=== PATIENT | male | born 1970 | race Caucasian/White ===

== ENCOUNTER 2020-06-15 05:57 | Inpatient (IN) | payer OTHER, SELFPAY ==
[2020-06-10 11:05] LABS: Absolute Lymphocytes (CBC) 1.3 K/uL (0.7-4.9); Basophils % 0.6 % (0-1.3); Hematocrit 44.4 % (39.6-49.0); Lymphocytes % 12.2 % (15.3-44.8); MPV 9.4 fL (7.6-11.3); RBC Red Blood Cell Count 5.24 M/uL (4.33-5.43)
[2020-06-10 11:08] LABS: Protime INR 1.02
[2020-06-10 11:17] LABS: BUN Blood Urea Nitrogen 14 mg/dL (7-18); Bicarbonate 26 mmol/L (21-32); Glucose Level 105 mg/dL (74-106); Potassium 3.9 mmol/L (3.5-5.1); Sodium Level 141 mmol/L (136-145)
--- NOTE | 2020-06-10 11:47 | RAD REPORT ---
EXAM DESCRIPTION: Sri Greene (2 Views)06/10/2020 11:32 am CLINICAL HISTORY: Preop for knee surgery COMPARISON: None FINDINGS: The lungs appear clear of acute infiltrate. The heart is normal size IMPRESSION: No acute abnormalities displayed
[2020-06-15] MEDS ORDERED: Ringers Lactate 1,000 ML IV ONE ×3 (06:25→12:21)
[2020-06-15] MEDS ORDERED: CEFAZOLIN/SWI 2gm 2 GM/20 ML SYR ONE (06:26)
--- OUTSIDE RECORDS SUMMARY | 2020-06-15 06:34 | XMS REPORT | Continuity of Care Document ---
:1970 Author Organization [facility] t Address Counts include 234 beds at the [facility] [place] [address] Care Team Providers Name Role Phone Unavailable Unavailable Unavailable Problems Condition Condition Condition Status Onset Resolution Last Treating Co mments Source Name Details Category Date Date Treatment Clinician Date Pain, Pain, Problem Active [facility], knee, [facility] right right l Outpati ent Clinics Pain, Pain, Problem Active [facility], [facility], [facility] - knee, left knee, left Me moria l Outpati ent Clinics Primary Primary Problem Active [facility] osteoarthr osteoarthr [place] - itis of itis of Mem[facility] left knee left knee l Outpati ent Clinics Primary Primary Problem Active [facility] osteoarthr osteoarthr [place] - itis of itis of [facility] right knee right knee l Outpati ent Clinics Anxiety Anxiety Problem Active [facility] and and [facility] - depression depression Me moria l Outpati ent Clinics Spinal Spinal Problem Active [facility] stenosis, stenosis, Luke s - lumbar lumbar Memoria region region l without without Outpati neurogenic neurogenic en t claudicati claudicati Cl inics on on BPH BPH Diagnosis Active [facility] (benign (benign [facility] - prostatic prostatic Michael jeff hypertroph hypertroph l y) with y) with Outpati urinary urinary ent obstructio obstructio Cl inics n n Seasonal Seasonal Diagnosis Active [facility] allergies allergies [facility] - [facility] l Outpati ent Clinics Hyperlipid Hyperlipid Problem Active [facility] emia emia [facility] ent Clinics Essential Essential Diagnosis Active [facility] hypertensi hypertensi [place] - on on Mem[facility] l Outpati ent Clinics Elevated Elevated Diagnosis Active [facility] PSA PSA [facility] - [facility]oria l Outpati ent Clinics High-funct High-funct Diagnosis Active [facility] ioning ioning Lukes - autism autism Memoria spectrum spectrum l disorder disorder Outpat i ent Clinics Prediabete Prediabete Diagnosis Active [facility] - [facility] Allergies, Adverse Reactions, Alerts This patient has no known allergies or adverse reactions. Medications Ordered Filled Start Stop Current Ordering Indication Dosage Frequency Signature Comments Components Source Medication Medication Date Date Medication? Clinician (SIG) Name Name Vitamin D3 Vitamin D3 Yes Tra [address] [facility] Maximum Maximum 2-21 Richardson [facility] - Strength Strength 00:00: Memor ia 00 [facility] Vitamin C Vitamin C Yes Tra [address] [facility] Richardson [facility] - [facility]oria [facility] Naproxen Naproxen Yes Tra [address] [facility] Richardson [facility] - [facility]oria [facility] ent [facility] Multi Multi Yes Tra not [facility] Vitamin Vitamin Richardson defined [facility] Cetirizine Cetirizine Yes Tra [address] [facility] HCl HCl Richardson [facility] Finasteride Finasteride Yes Tra [address] [facility] - [facility] Sertraline Sertraline Yes Tra TAKE [address] [facility] HCl HCl Richardson TABLET BY Lukes - MOUTH ONCE Memoria A DAY [facility] Guanfacine Guanfacine Yes Tra TAKE [address] [facility] HCl HCl Richardson [facility] ent [facility] Procedures This patient has no known procedures. Encounters Start End Encounter Admission Attending Care Care Encounter Source Date/Time Date/Time Type Type Clinicians Facility Department ID 2019-10-20 2019-10-20 Outpatient Ivy Haynest [id number] [facility] 13:30:00 13:30:00 t [employer] [facility] Medicine [facility] ent [facility] 2019-10-02 2019-10-02 [facility] [id number] [address] 09:20:00 09:20:00 t [facility] - and Joint Joint Mem[facility] a [facility] ent [facility] 2019-08-13 2019-08-13 [facility] [id number] [address] 10:00:00 10:00:00 t Bone Bone and [facility] - and Joint Joint Memori a Clinic [facility] ent Clinics 2019-07-30 2019-07-30 Outpatient Ivy Collins [id number] [address] 14:00:00 14:00:00 t Curtis Fajardo Curtis [facility] ent Clinics 2019-06-16 2019-06-16 Outpatient Ivy Collins [id number] [address] 09:00:00 09:00:00 t Bone Bone and [facility] - and Joint Joint [facility] of [facility] ent Clinics Results This patient has no known results.
[2020-06-15] MEDS ORDERED: BUPIVACAINE 0.25% PF 10 ML VIAL ONE ×2 (06:39→08:06)
[2020-06-15] MEDS ORDERED: LIDOCAINE 2% MPF 5 ML VIAL ONE ×3 (06:39→08:06)
[2020-06-15] MEDS ORDERED: NS 0.9% VIAL 10 ML ONE ×2 (06:39→08:06)
[2020-06-15] MEDS ORDERED: dexAMETHasone 4 MG/ML VIAL ONE ×2 (06:39→08:06)
[2020-06-15] MEDS ORDERED: MIDAZOLAM HCL 2 MG/2 ML INJ ONE ×2 (06:40→08:06)
[2020-06-15] MEDS ORDERED: FENTANYL CITR 100 MCG/2 ML ONE ×2 (06:40→08:06)
--- OUTSIDE RECORDS SUMMARY | 2020-06-15 07:04 | XMS REPORT | Continuity of Care Document ---
:1970 Author Organization [facility] t Address [facility] [place] [address] Care Team Providers Name Role Phone Unavailable [...] [facility] Allergies, Adverse Reactions, Alerts This patient has no known allergies or adverse reactions. Medications Ordered Filled Start Stop Current Ordering Indication Dosage Frequency Signature Comments Components Source Medication Medication Date Date Medication? Clinician (SIG) Name Name Vitamin D3 Vitamin D3 Yes Tra [address] [facility] Maximum Maximum 2-21 Richardson [facility] - Strength Strength 00:00: Memor ia 00 [facility] Vitamin C Vitamin C Yes Tra [address] [facility] Naproxen Naproxen Yes Tra [address] [facility] - Memoria [facility] ent [facility] Multi Multi Yes Tra not [facility] Vitamin Vitamin Richardson defined [facility] Cetirizine Cetirizine Yes Tra [address] [facility] [address] HCl HCl Richardson [facility] Finasteride Finasteride Yes Tra [address] [facility] Sertraline Sertraline Yes Tra TAKE [address] [facility] [address] HCl HCl Richardson TABLET BY Lukes - MOUTH ONCE Memoria A DAY [facility] Guanfacine Guanfacine Yes Tra TAKE [address] [facility] HCl HCl Richardson [facility] Procedures This patient has no known procedures. Encounters Start End Encounter Admission Attending Care Care Encounter Source Date/Time Date/Time Type Type Clinicians Facility Department ID 2019-10-20 2019-10-20 Outpatient Ivy Haynest [id number] [facility] [address] 13:30:00 13:30:00 t [place] [facility] Medicine [facility] ent [facility] 2019-10-02 2019-10-02 [facility] [id number] [address] 09:20:00 09:20:00 t Bone Bone and [facility] - and Joint Joint Memori a [facility] ent [facility] 2019-08-13 2019-08-13 [facility] [id number] 10:00:00 10:00:00 t Bone Bone and [facility] - and Joint Joint Memori a Clinic [facility] ent Clinics 2019-07-30 2019-07-30 Outpatient Ivy Collins [id number] 14:00:00 14:00:00 t Curtis Fajardo Curtis [facility] ent Clinics 2019-06-16 2019-06-16 Outpatient Ivy Collins [id number] 09:00:00 09:00:00 t Bone Bone and [facility] - and Joint Joint [facility] Clinic of [facility] ent Clinics Results This patient has no known results.
[2020-06-15] MEDS ORDERED: HYDROMORPHONE HCL 1 MG/ML INJ ONE (07:37)
[2020-06-15] MEDS ORDERED: propofoL 200 MG/20 ML VIAL IV ONE (07:42)
[2020-06-15] MEDS ORDERED: KETAMINE HCL 500 MG/5 ML VIAL ONE (07:51)
[2020-06-15] MEDS ORDERED: TRANEXAMIC ACID 1,000 MG in NA CHLORIDE 0.9% 50 ML IV SCH (08:00)
[2020-06-15] MEDS ORDERED: EPHEDRINE SULF 50 MG/ML VIAL ONE (08:01)
[2020-06-15] MEDS: BUPIVACA 0.5%/EPI 0.0005%/PF 30 ML VIAL ONE ×2 (08:35→10:00)
[2020-06-15] MEDS ORDERED: KETOROLAC 30 MG/ML INJ ONE ×2 (10:28→12:21)
[2020-06-15] MEDS ORDERED: MORPHINE 10 MG/ML VIAL ONE (10:41)
--- NOTE | 2020-06-15 11:07 | P.BOP ---
Preoperative diagnosis: right knee osteoarthritis Postoperative diagnosis: same Primary procedure: right total knee arthroplasty Secondary procedure: same Convex Grinder Operator: NONE,NONE Estimated blood loss: 20 cc Specimen: right knee bone remnants Findings: see dictation Anesthesia: General Complications: None Implants: Biomet Geraldine Persona 10 CR Std Femur, G tibia, 32 patella, 13mm MC poly Fluids & blood products: per anesthesia record; TT: 122 mins @ 300 mmHg Transferred to: Recovery Room Condition: Good
[2020-06-15] MEDS ORDERED: MORPHINE 2 MG/ML SYR IV PRN (11:08)
[2020-06-15] MEDS ORDERED: DOCUSATE NA 100 MG CAP PO PRN (11:08)
[2020-06-15] MEDS ORDERED: ONDANSETRON 4 MG/2 ML VIAL IV PRN (11:08)
[2020-06-15] MEDS ORDERED: TRAMADOL HCL 50 MG TAB PO PRN (11:13)
[2020-06-15] MEDS: HYDROMORPHONE HCL 1 MG/ML INJ ONE ×4 (11:43→12:17)
--- NOTE | 2020-06-15 12:36 | RAD REPORT ---
EXAM DESCRIPTION: RAD - Knee Right 2 View - 06/15/2020 11:50 am CLINICAL HISTORY: Right knee surgery FINDINGS: Postoperative changes of a right knee arthroplasty. Prosthesis is in good position. No evidence of fracture or dislocation
[2020-06-15 12:54] LABS: Hematocrit 44.4 % (39.6-49.0)
[2020-06-15] MEDS ORDERED: INFLUENZA VACCINE (for 3y+) 0.5 ML DOSE IMVAC ONE (15:00)
[2020-06-15 16:10] LABS: Absolute Lymphocytes (CBC) 0.4 K/uL (0.7-4.9); Basophils % 0.4 % (0-1.3); Hematocrit 46.1 % (39.6-49.0); Lymphocytes % 1.9 % (15.3-44.8); MPV 9.3 fL (7.6-11.3); RBC Red Blood Cell Count 5.36 M/uL (4.33-5.43)
[2020-06-15 16:33] LABS: Albumin 3.7 g/dL (3.4-5.0); Bilirubin Total 0.4 mg/dL (0.2-1.0); Potassium 4.1 mmol/L (3.5-5.1); Protein, Total 7.2 g/dL (6.4-8.2); Thyroid Stimulating Hormone 0.513 uIU/mL (0.360-3.740)
[2020-06-15 16:50] LABS: Blood Morphology Comment NOT SEEN (NOT SEEN); Platelet Estimate ADEQ; Toxic Granulation 1+; White Blood Cell Scan OK (OK)
[2020-06-15] MEDS ORDERED: CEFAZOLIN/SWI 2gm 2 GM/20 ML SYR IV SCH (17:00)
[2020-06-15] MEDS ORDERED: CEFAZOLIN 2 GM in NA CHLORIDE 0.9% 100 ML IVPB SCH (17:00)
[2020-06-15] MEDS ORDERED: METOPROLOL TARTRATE 5 MG/5 ML INJ IV STA (17:38)
[2020-06-15] MEDS ORDERED: PIPER/TAZO/NS 3.375gm 3.375 GM/100 ML BAG IVPB SCH (18:00)
[2020-06-15] MEDS: HYDROCODONE/APAP 7.5/325 MG TAB PO PRN (21:01)
[2020-06-15 23:24] VITALS: O2SAT 94
[2020-06-16] MEDS ORDERED: CEFAZOLIN 2 GM in NA CHLORIDE 0.9% 100 ML IVPB SCH (01:00)
[2020-06-16] MEDS: CEFAZOLIN/SWI 2gm 2 GM/20 ML SYR IV SCH ×2 (01:00→11:29)
[2020-06-16] MEDS: HYDROCODONE/APAP 7.5/325 MG TAB PO PRN ×3 (01:01→11:33)
[2020-06-16 04:29] LABS: Absolute Lymphocytes (CBC) 0.7 K/uL (0.7-4.9); Basophils % 0.1 % (0-1.3); Hematocrit 39.5 % (39.6-49.0); Lymphocytes % 3.9 % (15.3-44.8); MPV 9.4 fL (7.6-11.3); RBC Red Blood Cell Count 4.66 M/uL (4.33-5.43)
[2020-06-16 04:36] LABS: BUN Blood Urea Nitrogen 10 mg/dL (7-18); Bicarbonate 25 mmol/L (21-32); Glucose Level 142 mg/dL (74-106); Potassium 3.7 mmol/L (3.5-5.1); Sodium Level 141 mmol/L (136-145)
[2020-06-16] MEDS ORDERED: ENOXAPARIN 30 MG/0.3 ML SQ SCH (06:00)
[2020-06-16] MEDS ORDERED: SERTRALINE HCL 100 MG TAB PO SCH (09:00)
[2020-06-16] MEDS ORDERED: CELECOXIB 100 MG CAPSULE PO SCH (09:00)
[2020-06-16] MEDS ORDERED: GUANFACINE HCL 1 MG TAB PO SCH (09:00)
[2020-06-16] MEDS ORDERED: FINASTERIDE 5 MG TAB PO SCH (09:00)
[2020-06-16 09:21] VITALS: TEMP 97.7
--- NOTE | 2020-06-16 09:48 | P.CNS ---
Date of Consult: 06/15/20 Reason for Consult: Tachyarrhythmia postoperatively Requesting Physician: Wayne Walters Chief Complaint: Presents for total right knee arthroplasty History of Present Illness: Patient is a 49-year-old gentleman who came into the hospital for right total knee arthroplasty. Patient is has severe arthritis in that right knee. They been monitoring it for quite a while but he got to the point were he was having difficulty ambulating. Patient is morbidly obese and weighs over 300 lb. Patient did well during surgery. However, postoperatively his heart rate was slightly elevated. I was consulted for assistance with evaluating his elevated heart rate. Patient was seen by Cardiology in the preoperative. Patient had any EKG performed which was unremarkable. His EKG today does show some sinus tachycardia. His heart rates is 110 to 120s. At this time, patient will be monitored and will do additional cardiac testing including thyroid testing. Patient does have sinus tachycardia and will evaluate him for etiologies of si nus tachycardia. Allergies No Known Allergies Allergy (Verified 06/10/20 11:07) Home Medications: Ascorbic Acid [Vitamin C] 1,000 mg PO DAILY 06/10/20 Cholecalciferol (Vitamin D3) [Vitamin D 5,000 Iu Cap] 5,000 unit PO DAILY 06/10/20 Finasteride 5 mg PO DAILY 06/10/20 Guanfacine HCl 2 mg PO DAILY 06/10/20 Ibuprofen 2 tab PO PRN PRN 06/10/20 Multivitamin [Multivitamins] 1 each PO DAILY 06/10/20 Sertraline [Zoloft] 100 mg PO DAILY 06/10/20 - Past Medical/Surgical History -: Hypertension -: hyperlipidemia -: Anxiety -: Depression -: Spinal Stenosis,lumbar region -: elevated PSA - Family History Father Family History: Reviewed- Non-Contributory - Social History Alcohol use: No CD- Drugs: No Caffeine use: Yes Place of Residence: Home Review of Systems 10-point ROS is otherwise unremarkable Physical Examination Temp Pulse Resp BP Pulse Ox 97.7 F 87 18 120/64 94 06/16/20 08:00 06/16/20 08:00 06/16/20 08:26 06/16/20 08:00 06/16/20 08:26 General: Alert, In no apparent distress, Oriented x3 HEENT: Atraumatic, PERRLA, Mucous membr. moist/pink, EOMI, Sclerae nonicteric Neck: Supple, 2+ carotid pulse no bruit, No LAD, Without JVD or thyroid abnormality Respiratory: Clear to auscultation bilaterally, Normal air movement Cardiovascular: Other (Tachyarrhythmia) Gastrointestinal: Normal bowel sounds, Soft and benign, Non-distended, No tenderness Musculoskeletal: No clubbing, No swelling, No tenderness Integumentary: No rashes Neurological: Normal speech, Normal strength at 5/5 x4 extr, Normal tone, Sensation intact, Cranial nerves 3-12 intact, Normal affect, Abnormal gait, Abnormal strength Lymphatics: No axilla or inguinal lymphadenopathy Laboratory Data (last 24 hrs) 06/16/20 03:43: Sodium 141, Potassium 3.7, BUN 10, Creatinine 0.69, Glucose 142 H 06/16/20 03:43: WBC 18.0 H, Hgb 13.8, Hct 39.5 L, Plt Count 203 D 06/15/20 15:55: WBC 20.2 H* D, Hgb 15.6, Hct 46.1, Plt Count 269 D 06/15/20 15:55: Sodium 142, Potassium 4.1, BUN 12, Creatinine 0.93, Glucose 167 H, Total Bilirubin 0.4, AST 15, ALT 23, Alkaline Phosphatase 81 06/15/20 12:12: Hgb 14.8, Hct 44.4 - Problems (1) Status post total right knee replacement Current Visit: Yes Status: Acute (2) Sinus tachycardia Current Visit: Yes Status: Acute Conclusions/ Impression: Plan: 1. Pain control 2. IV hydration 3. Continue with physical therapy 4. EKG repeated and it shows sinus tachycardia 5. Check echocardiogram 6. Check thyroid studies 7. Check H&H 8. O2 sats are stable and will continue to monitor 9. GI and DVT prophylaxis Critical Care: No Time Spent Managing Pts care (In Minutes): 45
--- NOTE | 2020-06-16 12:31 | OP ---
Date of Procedure: 06/15/2020 Surgeon: Wayne Walters MD Preoperative Diagnosis: Right knee osteoarthritis. Postoperative Diagnosis: Right knee osteoarthritis. Procedure Performed: Right total knee arthroplasty. Anesthesia: General LMA with right adductor canal block. Estimated Blood Loss: 20 cc. Fluids: Per Anesthesia record. Complications: None. Tourniquet Time: 122 minutes at 300 mmHg. Implants: A Biomet Geraldine Persona knee, size 10 CR standard femur, size G tibia, size 32 patella, and a 13 mm MC poly. Indication For Procedure: Nate is a 49-year-old male presented to my clinic with signs, symptoms and x-ray findings consistent with a severe right knee osteoarthritis with varus deformity. I discussed with the patient at length risks and benefits associated with operative and nonoperative treatment. He had failed conservative treatment measures including corticosteroid and viscosupplementation injections. He expressed understanding and elected to proceed with operative treatment. Description Of Procedure: After informed consent was obtained, the patient was identified in the preoperative holding area. The right lower extremity was marked. The patient was then taken to the PACU where he underwent a right lower extremity adductor canal block performed by Anesthesia. He was then taken to the operating room, transferred to the operating table in supine fashion, and placed under general anesthesia. His right lower extremity was then prepped and draped in usual sterile fashion. A time-out was initiated. The correct patient and procedure were confirmed and identified. The patient did receive his preoperative prophylactic antibiotics. The right lower extremity was then exsanguinated and tourniquet was inflated to 300 mmHg. Approximately 15 cm longitudinal incision was made centered over the anterior aspect of the right knee. Dissection was then taken to the extensor mechanism and a medial parapatellar arthrotomy was performed. The patella was everted and dislocated laterally and the knee was flexed in the fat pad. Medial lateral meniscus and ACL were all excised exposing the distal femur. Excess hypertrophic synovium was also excised within the suprapatellar pouch preoperatively. The patient had MRIs of his right knee and cutting block was then placed over the distal femur and pins were then placed. The distal femoral cutting block was then placed over the pins. Knee joint was then used to ensure proper depth cut and the distal femur was then cut. The chamfer cutting guide was then placed over the distal end of the femur. Anterior, posterior cuts as well as anterior and posterior chamfer cuts were then made again confirming proper depth of the cut using an Carlos wing. Excess bone remnants were then sent to Pathology for further evaluation. Next, attention was taken to the proximal tibia. A tibial jig and tibial cutting block was then placed on proximal aspect of the right tibia and locked into position. Pins were then placed and alignment guide was then used to confirm proper alignment of the cut and then coronal and sagittal planes. Once this was confirmed, the cutting jig was placed over the pins and the proximal tibia was cut. Given a significant wearing deformity of his right knee, extra tibia was cut to get the medial tibial plateau and to have a slight cut on the medial tibial plateau. Sizing trays were then selected and size 12 mm spacer was used and there was good overall balance in flexion and extension. It was a slightly tight in the medial compartment with extension and the posterior oblique ligament as well as the deep MCL was then elevated using an elevator and after this was performed, there was overall better coronal balance as well as left fit. Next, the trial implants were then placed using the size 10 standard CR femur and a size G tibia with a 12 mm poly. There was overall good range of motion. However, there was a little bit of laxity in both flexion and extension and size 13 mm MC poly was then placed and that improved both coronal and sagittal balance. Trial implants were then removed. The wound was then irrigated thoroughly with normal saline and the knee was then injected with 30 cc of 0.5% Marcaine with epinephrine both in the posterior capsule and medial lateral gutters as well as quadriceps tendon and periosteum. The tibia was then punched. The femur was drilled. The cement was then prepared on the back table. Cement was then placed first on the tibial surface followed by size G tibia. Excess cement was removed with [place] elevators. Size 10 standard CR femur was then placed on the distal femur after cement was placed on the distal femur. Excess cement was then removed and a size 13 mm trial poly was then placed. The knee was held in extension as the cement hardened. Undersurface of the patella was prepared debriding osteophytes using rongeurs as well as osteophytes had been debrided off the proximal tibia with rongeurs and osteotomes to aid with the medial tightness. Cement was placed on the undersurface of the patella after it was cut and a size 32 patella was placed. Once the cement was hardened, the knee was ranged, there was good overall stability both in flexion, extension and as well as stability with varus and valgus stresses. Trial poly was then removed and a size 13 mm MC poly was then placed and locked into position. The knee was then ranged again. There was good overall range of motion both for flexion and extension with good stability. The wound was then irrigated again thoroughly with normal saline using pulse lavage. Tourniquet was let down. Hemostasis was achieved using Bovie electrocautery. Extensor mechanism was then approximated using a #1 Vicryl both in interrupted and running fashion. The fascia was then approximated using 0 Vicryl. Subcutaneous tissue was approximated with a 2-0 Vicryl. Skin was approximated using yamileth. Sterile dressings were applied. The patient was awakened and transferred back in stable condition. Postoperative Plan: Physical Therapy will be consulted to aid with mobilization and we will plan on keeping him for 2 midnights. BINDU/NIURKA Voice ID: [id number] Report ID: [id number] CLARY
[2020-06-16 13:35] VITALS: BP 115/60
--- NOTE | 2020-06-16 14:11 | P.PN ---
Subjective Date of Service: 06/16/20 Patient continues to do well. Heart rate is stable. Patient denies any complaints. Chi with physical therapy and possible discharge later today. White count has come down. Patient afebrile. Denies any complaints. Review of Systems 10-point ROS is otherwise unremarkable Physical Examination - Vital Signs Temperature: 97.7 F Blood Pressure: 115/60 Pulse: 94 Respirations: 18 Pulse Ox (%): 98 - Physical Exam General: Alert, In no apparent distress, Oriented x3 HEENT: Atraumatic, PERRLA, EOMI Neck: Supple, JVD not distended Respiratory: Clear to auscultation bilaterally, Normal air movement Cardiovascular: Regular rate/rhythm, Normal S1 S2, No murmurs Gastrointestinal: Normal bowel sounds, Soft and benign, Non-distended, No tenderness Musculoskeletal: Tenderness (Appropriately tender) Neurological: Normal tone, Sensation intact, Cranial nerves 3-12 intact - Studies Laboratory Data (last 24 hrs) 06/16/20 03:43: Sodium 141, Potassium 3.7, BUN 10, Creatinine 0.69, Glucose 142 H 06/16/20 03:43: WBC 18.0 H, Hgb 13.8, Hct 39.5 L, Plt Count 203 D 06/15/20 15:55: WBC 20.2 H* D, Hgb 15.6, Hct 46.1, Plt Count 269 D 06/15/20 15:55: Sodium 142, Potassium 4.1, BUN 12, Creatinine 0.93, Glucose 167 H, Total Bilirubin 0.4, AST 15, ALT 23, Alkaline Phosphatase 81 Medications List Reviewed: Yes Assessment & Plan - Problems (Diagnosis) (1) Status post total right knee replacement Current Visit: Yes Status: Acute (2) Sinus tachycardia Current Visit: Yes Status: Acute - Plan Patient continues to do well. Patient's heart rate is stable. Patient remains afebrile. No signs of any infection. White blood cell count coming down. Continue to work with physical therapy. Anticipate discharge home later today. Discharge Plan: Home Plan to discharge in: Greater than 2 days - Advance Directives Does patient have a Living Will: No Does patient have a Durable POA for Healthcare: No - Code Status/Comfort Care Code Status Assessed: Yes Code Status: Full Code Critical Care: No Time Spent Managing PTS Care (In Minutes): 35
--- NOTE | 2020-06-16 14:18 | ECHO ---
HEIGHT: 5 ft 8 in WEIGHT: 336 lb 0 oz DATE OF STUDY: 06/16/[address]: Alissa Givens MD 2-DIMENSIONAL: YES M.MODE: YES DOPPLER: YES COLOR FLOW: YES TDS: PORTABLE: DEFINITY: BUBBLE STUDY: DIAGNOSIS: TACHYCARDIA CARDIAC HISTORY: CATHERIZATION: NO SURGERY: NO PROSTHETIC VALVE: NO PACEMAKER: NO MEASUREMENTS (cm) DIASTOLIC (NORMALS) SYSTOLIC (NORMALS) IVSd 1.2 (0.6-1.2) LA Diam 2.9 (1.9-4.0) LVEF 80% LVIDd 3.7 (3.5-5.7) LVIDs 1.9 (2.0-3.5) %FS 48% LVPWd 1.3 (0.6-1.2) Ao Diam 2.8 (2.0-3.7) 2 DIMENSIONAL ASSESSMENT: RIGHT ATRIUM: NORMAL LEFT ATRIUM: NORMAL RIGHT VENTRICLE: NORMAL LEFT VENTRICLE: NORMAL TRICUSPID VALVE: NORMAL MITRAL VALVE: NORMAL PULMONIC VALVE: NORMAL AORTIC VALVE: NORMAL PERICARDIAL EFFUSION: NONE AORTIC ROOT: NORMAL LEFT VENTRICULAR WALL MOTION: NORMAL DOPPLER/COLOR FLOW: NORMAL COMMENTS: 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 NORMAL WALL MOTION. TECHNOLOGIST: SERINA COLLINS
[2020-06-16 14:37] VITALS: BMI 35.9
--- NOTE | 2020-06-16 14:51 | P.PN ---
Subjective Date of Service: 06/16/20 Chief Complaint: s/p total right knee arthroplasty Subjective: Ambulating, Improving, Working w/ PT Physical Examination - Vital Signs Temperature: 97.7 F Blood Pressure: 115/60 Pulse: 94 Respirations: 18 Pulse Ox (%): 98 - Physical Exam General: Alert, In no apparent distress Musculoskeletal: Other (RLE: dressing c/d/i; minimal swelling; +EHL/FHL/GSC/TA; sensation grossly intact distally) - Studies Laboratory Data (last 24 hrs) 06/16/20 03:43: Sodium 141, Potassium 3.7, BUN 10, Creatinine 0.69, Glucose 142 H 06/16/20 03:43: WBC 18.0 H, Hgb 13.8, Hct 39.5 L, Plt Count 203 D 06/15/20 15:55: WBC 20.2 H* D, Hgb 15.6, Hct 46.1, Plt Count 269 D 06/15/20 15:55: Sodium 142, Potassium 4.1, BUN 12, Creatinine 0.93, Glucose 167 H, Total Bilirubin 0.4, AST 15, ALT 23, Alkaline Phosphatase 81 Medications List Reviewed: Yes Assessment And Plan - Plan Nate is a 49 yo male s/p right total knee arthroplasty POD#1 -pt to mobilize -WBAT RLE -lovenox for DVT prophylaxis -appreciate Dr. Givens consult for evaluation of tachycardia postop; pulse improved and normalizing -WBC improving today likely secondary to stress from surgery -d/c home today if mobilizes well with PT
== END 2020-06-16 15:11 | disposition home health service (06) | DRG 470 ==
LOC: OR 05:57 → 2ND 12:17
PROVIDERS: ADMIT Orthopaedic Surgery Sports Medicine; ATTEND Orthopaedic Surgery Sports Medicine
PROC: 0SRC0J9 Replacement of Right Knee Joint with Synthetic Substitute, Cemented, Open Approach (ICD-10-PCS; principal; 2020-06-15 07:30)
DX: M17.11 Unilateral primary osteoarthritis, right knee (principal); I10 Essential (primary) hypertension; E78.5 Hyperlipidemia, unspecified; R00.0 Tachycardia, unspecified; E66.01 Morbid (severe) obesity due to excess calories; Z68.31 Body mass index [BMI] 31.0-31.9, adult; Z20.828 Contact with and (suspected) exposure to other viral communicable diseases
CPT/HCPCS: 36415; 71046; 80048; 80053; 84439; 84443; 85014; 85018; 85025; 85610; 85730; 87040; 88304; 88305; 88311; 93005; 93306; 94010; 97110; 97116; 97139; 97161; 97530; J0690; J1100; J1170; J1650; J2250; J2270; J2543; J2704; J3010; J7120; U0002

== ENCOUNTER 2022-01-31 05:50 | Observation (INO) | payer OTHER ==
[2022-01-26 10:56] LABS: Protime INR 1.06
[2022-01-26 11:03] LABS: Potassium 3.8 mmol/L (3.5-5.1)
[2022-01-26 11:30] LABS: Hematocrit 44.8 % (39.6-49.0); Lymphocytes % 10.3 % (15.3-44.8); MPV 9.2 fL (7.6-11.3); RBC Red Blood Cell Count 5.29 M/uL (4.33-5.43)
--- NOTE | 2022-01-26 12:32 | RAD REPORT ---
EXAM DESCRIPTION: RAD - Chest Pa And Lat (2 Views) - 01/26/2022 10:43 am CLINICAL HISTORY: Pre op pending knee replacement COMPARISON: Two view chest 06/10/2020 TECHNIQUE: Frontal and lateral views of the chest were obtained. FINDINGS: The lungs are fibrotic in a pattern similar to comparison. No new mass or focal lung paren chymal process. Mediastinal and hilar regions remain within normal range. Trachea is in midline. He art size is normal and central vasculature is within normal limits. No pleural effusion or pneumotho rax seen. No acute bony finding noted. No aortic abnormality. IMPRESSION: Chronic interstitial lung pattern similar to comparison. No acute cardiopulmonary findin g.
[2022-01-31] MEDS ORDERED: Ringers Lactate 1,000 ML IV ONE ×2 (06:18→10:04)
[2022-01-31] MEDS ORDERED: CEFAZOLIN 2 GM IN 0.9% NACL 2 GM/100 ML BAG ONE (06:19)
[2022-01-31] MEDS ORDERED: FENTANYL CITR 100 MCG/2 ML ONE ×2 (06:24→09:09)
[2022-01-31] MEDS ORDERED: LIDOCAINE 2% MPF 5 ML VIAL ONE (06:25)
[2022-01-31] MEDS ORDERED: MIDAZOLAM HCL 2 MG/2 ML INJ ONE (06:25)
[2022-01-31] MEDS ORDERED: propofoL 200 MG/20 ML VIAL IV ONE (06:25)
[2022-01-31] MEDS ORDERED: NS 0.9% VIAL 10 ML ONE (06:30)
[2022-01-31] MEDS ORDERED: KETAMINE HCL 500 MG/5 ML VIAL ONE (06:30)
[2022-01-31] MEDS ORDERED: BUPIVACAINE 0.25% PF 10 ML VIAL ONE ×2 (06:34→06:37)
[2022-01-31] MEDS ORDERED: HYDROMORPHONE HCL 1 MG/ML INJ ONE ×2 (06:35→11:58)
[2022-01-31] MEDS ORDERED: LIDOCAINE 1% MPF 5 ML VIAL ONE (06:35)
[2022-01-31] MEDS ORDERED: dexAMETHasone 4 MG/ML VIAL ONE (06:35)
[2022-01-31] MEDS ORDERED: BUPIVACAINE 0.5% Inj,MDV 50 mL VIAL ONE (06:36)
[2022-01-31] MEDS ORDERED: TRANEXAMIC ACID 1,000 MG/10 ML VIAL IV ONE ×2 (07:21→07:43)
[2022-01-31] MEDS: BUPIVACA 0.5%/EPI 0.0005%/PF 30 ML VIAL ONE ×2 (08:36→09:50)
[2022-01-31] MEDS ORDERED: dexAMETHasone 10 MG/ML VIAL ONE (09:27)
[2022-01-31] MEDS ORDERED: EPHEDRINE SULF 50 MG/ML VIAL ONE (09:30)
[2022-01-31] MEDS ORDERED: KETOROLAC 30 MG/ML INJ ONE (10:13)
--- NOTE | 2022-01-31 11:05 | P.BOP ---
Preoperative diagnosis: left knee osteoarthritis Postoperative diagnosis: same Primary procedure: left total knee arthroplasty Business Development Engineer: NONE,NONE Estimated blood loss: 30 cc Specimen: left knee bone remnants Findings: see dictation Anesthesia: General Complications: None Implants: Biomet Geraldine Persona 9 CR femur, G tibia w/ stem, 32 patella, 13 CR poly Fluids & blood products: per anesthesia record; TT: 95 mins @ 300 mmHg Transferred to: Recovery Room Condition: Good
[2022-01-31] MEDS ORDERED: DOCUSATE NA 100 MG CAP PO PRN (11:07)
[2022-01-31] MEDS ORDERED: MORPHINE 4 MG/ML SYR IV PRN (11:07)
[2022-01-31] MEDS ORDERED: ONDANSETRON 4 MG/2 ML VIAL IV PRN (11:07)
[2022-01-31] MEDS ORDERED: TRAMADOL HCL 50 MG TAB PO PRN (11:11)
[2022-01-31] MEDS ORDERED: ACETAMINOPHEN 500 MG TAB PO PRN (11:11)
[2022-01-31] MEDS: HYDROMORPHONE HCL 1 MG/ML INJ ONE ×2 (11:23→11:30)
--- NOTE | 2022-01-31 11:54 | RAD REPORT ---
EXAM DESCRIPTION: RAD - Knee Left 2 View - 01/31/2022 11:45 am CLINICAL HISTORY: Post Op COMPARISON: No comparisons FINDINGS: Postoperative changes of left total knee arthroplasty is present. Skin yamileth are present anteriorly. Small amount of air is seen in the joint. IMPRESSION: No unexpected postoperative left knee abnormality.
[2022-01-31 12:14] VITALS: O2SAT 95
--- OUTSIDE RECORDS SUMMARY | 2022-01-31 12:26 | XMS REPORT | Continuity of Care Document ---
:1970 Author Organization [facility] t Address [address] [place] [address] Care Team Providers Name Role Phone Patrice Richardson Attending Clinician Unavailable Long Attending Clinician Unavailable Problems Condition Condition Condition Status Onset Resolution Last Treating Co mments Source Name Details Category Date Date Treatment Clinician Date Pain, Pain, Problem Active Common joint, joint, Spirit knee, knee, [facility] right right [facility] Pain, Pain, Problem Active Common joint, joint, Spirit knee, left knee, left [facility] Primary Primary Problem Active Common osteoarthr osteoarthr Sp gretel itis of itis of [facility] left knee left knee [facility] Primary Primary Problem Active Common osteoarthr osteoarthr Sp gretel itis of itis of [facility] right knee right knee [facility] Anxiety Anxiety Problem Active Common and and Spirit depression depression [facility] Spinal Spinal Problem Active Common stenosis, stenosis, Spir it lumbar lumbar - [facility] region region [facility] without without [facility] neurogenic neurogenic Me dical claudicati claudicati Ce nter on on BPH BPH Diagnosis Active Common (benign (benign Spirit prostatic prostatic - [facility] I hypertroph hypertroph St y) with y) with [facility] urinary urinary Medical obstructio obstructio Ce nter n n Seasonal Seasonal Diagnosis Active Com mon allergies allergies Spir it - [facility] Hyperlipid Hyperlipid Problem Active C ommon emia emia [facility] Essential Essential Diagnosis Active C ommon hypertensi hypertensi Sp gretel on on [facility] Elevated Elevated Diagnosis Active Com mon PSA PSA [facility] High-funct High-funct Diagnosis Active Common ioning ioning Spirit autism autism - [facility] spectrum spectrum St disorder disorder [facility] Prediabete Prediabete Diagnosis Active Common s s [facility] Allergies, Adverse Reactions, Alerts This patient has no known allergies or adverse reactions. Medications Ordered Filled Start Stop Current Ordering Indication Dosage Frequency Signature Comments Components Source Medication Medication Date Date Medication? Clinician (SIG) Name Name Vitamin D3 Vitamin D3 Yes Tra 1 capsule Common Maximum Maximum 2-21 Richardson [facility] Strength Strength 00:00: - [facility] 00 [facility] Vitamin C Vitamin C Yes Tra 1 tablet Common Richardson [facility] Naproxen Naproxen Yes Tra 2 tablets Common Richardson [facility] Multi Multi Yes Tra not Common Vitamin Vitamin Richardson defined Spiri [facility] Cetirizine Cetirizine Yes Tra 1 tablet Common HCl HCl Richardson [facility] Finasteride Finasteride Yes Tra 1 tablet Common Richardson [facility] Sertraline Sertraline Yes Tra TAKE 1 Common HCl HCl Richardson TABLET BY Spirit MOUTH ONCE - CHI A DAY [facility] Guanfacine Guanfacine Yes Tra TAKE 1 Common HCl HCl Richardson TABLET BY Spirit MOUTH AT - [facility]I BEDTIME [facility] Procedures This patient has no known procedures. Encounters Start End Encounter Admission Attending Care Care Encounter Source Date/Time Date/Time Type Type Clinicians Facility Department ID 2022-01-11 Outpatient Richardson, [facility] [id number] Common 15:28:04 Tra [facility] 2022-01-09 Outpatient Richardson, [facility] [id number] Common 09:34:35 Tra [facility] 2021-11-02 Outpatient Richardson, [facility] [id number] Common 11:10:01 Tra [facility] 2021-10-20 Outpatient Richardson, [facility] [id number] Common 08:52:01 Tra [facility] 2021-09-20 Outpatient Richardson, [facility] [id number] Common 13:39:42 Tra [facility] 2021-09-20 Outpatient Richardson, [facility] [id number] Common 13:39:32 Tra 77985 [facility] 2021-09-20 Outpatient Richardson, [facility] [id number] Common 13:26:57 Tra 74228 [facility] 2021-09-20 Outpatient Richardson, [facility] [id number] Common 12:55:24 Tra 99820 [facility] 2021-09-20 Outpatient Richardson, [facility] [id number] Common 12:47:24 Tra 53203 [facility] 2021-09-20 Outpatient Richardson, [facility] [id number] Common 12:45:23 Tra 86182 [facility] 2021-09-20 Outpatient Richardson, [facility] [id number] Common 12:42:24 Tra 21157 [facility] 2021-09-20 Outpatient Richardson, [facility] [id number] Common 11:52:44 Tra 95267 [facility] 2021-09-20 Outpatient Richardson, [facility] [id number] Common 11:28:37 Tra 99701 [facility] 2021-09-20 Outpatient Richardson, [facility] [id number] Common 11:28:31 Tra 29855 [facility] 2021-09-20 Outpatient Richardson, [facility] [id number] Common 11:21:01 Tra 79280 [facility] 2021-09-20 Outpatient Richardson, [facility] [id number] Common 11:19:41 Tra 98823 [facility] 2021-09-20 Outpatient Richadrson, [facility] [id number] Common 11:15:39 Tra 42379 [facility] 2021-09-20 Outpatient Richardson, [facility] [id number] Common 11:15:33 Tra 99896 [facility] 2021-09-20 Outpatient Richardson, [facility] [id number] Common 11:10:01 Tra 82330 [facility] 2021-09-20 Outpatient Rachael Frye [facility] [id number] Common 11:09:26 [id number] [facility] 2021-09-20 Outpatient Rachael Frye [facility] [id number] Common 10:58:41 72521 [facility] 2019-10-20 2019-10-20 [id number] Common 13:30:00 13:30:[address] [facility] 2019-10-02 2019-10-02 Out[id number] Common 09:20:00 09:20:00 t [facility] 2019-08-13 2019-08-13 Out[facility] [id number] Common 10:00:00 10:00:00 t [facility] 2019-07-30 2019-07-30 [facility] [id number] Common 14:00:00 14:00:00 t [place] [facility] 2019-06-16 2019-06-16 [id number] Common 09:00:00 09:00:00 t [facility] Sp[facility] - [facility] Results This patient has no known results.
[2022-01-31 12:44] VITALS: BMI 37.4
[2022-01-31] MEDS: CEFAZOLIN 2 GM in NA CHLORIDE 0.9% 100 ML IVPB SCH ×2 (13:32→21:16)
[2022-01-31] MEDS: HYDROCODONE/APAP 7.5/325 MG TAB PO PRN ×2 (18:25→23:05)
[2022-01-31] MEDS ORDERED: GUANFACINE HCL 2 MG PO SCH (21:00)
[2022-01-31] MEDS ORDERED: ATORVASTATIN 10 MG TAB PO SCH (21:00)
--- NOTE | 2022-01-31 21:55 | P.OP ---
Preoperative diagnosis: left knee osteoarthritis Postoperative diagnosis: same Primary procedure: left total knee arthroplasty Anesthesia: general Estimated blood loss: 30 cc Specimen: left knee bone remnants Findings: see dictation Operative Technique: Indication For Procedure: Nate is a 51-year-old male presented to my clinic with signs, symptoms and x-ray findings consistent with a severe left knee osteoarthritis with varus deformity. I discussed with the patient at length risks and benefits associated with operative and nonoperative treatment. He had failed conservative treatment measures including corticosteroid and viscosupplementation injections. He expressed understanding and elected to proceed with operative treatment. Description Of Procedure: After informed consent was obtained, the patient was identified in the preoperative holding area. The left lower extremity was marked. The patient was then taken to the PACU where he underwent a left l owerextremity adductor canal block performed by Anesthesia. He was then taken to the operating room, transferred to the operating table in supine fashion, and placed under general anesthesia. His left lower extremity was then prepped anddraped in usual sterile fashion. A time-out was initiated. The correct patientand procedure were confirmed and identified. The patient did receive his preoperative prophylactic antibiotics. The left lower extremity was then exsanguinated and tourniquet was inflated to 300 mmHg. Approximately 15 cm longitudinal incision was made centered over the anterior aspect of the right knee. Dissection was then taken to the extensor mechanism and a medial parapatellar arthrotomy was performed. The patella was everted and dislocated laterally and the knee was flexed in the fat pad. Medial lateral meniscus and ACL were all excised exposing the distal femur. Excess hypertrophic synovium was also excised within the suprapatellar pouch preoperatively. The patient had MRI of his left knee for preoperative planning and a premade cutting block was then placed over the distal femur and pins were then placed. The distal femoral cutting block was then placed over the pins. Knee joint was then used to ensure proper depth cut and the distal femur was then cut. The chamfer cutting guide was then placed over the distal end of the femur. Anterior, posterior cuts as well as anterior and posterior chamfer cuts were then made again confirming proper depth of the cut using an Carlos wing. Excess bone remnants were then sent to Pathology for further evaluation. Next, attention was taken to the proximal tibia. A tibial jig and tibial cutting block was then placed on proximal aspect of the left tibia and locked into position. Pins were then placed and alignment guide was then used to confirm proper alignment of the cut and then coronal and sagittal planes. Once this was confirmed, the cutting jig was placed over the pins and the proximal tibia was cut. Given a significant wearing deformity of his right knee, extra tibia was cut to get the medial tibial plateau and to have a slight cut on the medial tibial plateau. Sizing trays were then selected and size 12 mm spacer was used and there was good overall balance in flexion and extension. It was a slightly tight in the medial compartment with extension and the posterior oblique ligament as well as the deep MCL was then elevated using an elevator and after this was performed, there was overall better coronal balance as well as left fit. Next, the trial implants were then placed using the size 9 standard CR femur and a size G tibia with a 12 mm poly. There was overall good range of motion. However, there was a little bit of laxity in both flexion and extension and size 13 mm CR poly was then placed and that improved both coronal and sagittal balance. Trial implants were then removed. The wound was then irrigated thoroughly with normal saline and the knee was then injected with30 cc of 0.5% Marcaine with epinephrine both in the posterior capsule and mediallateral gutters as well as quadriceps tendon and periosteum. The tibia was then punched. The femur was drilled. The cement was then prepared on the back table. Cement was then placed first on the tibial surface followed by size G tibia w/ a stem given his increased deformity and stress. Excess cement was removed with [place] elevators. Size 9 standard CR femur was then placed on the distal femur after cement was placed on the distal femur. Excess cement was then removed and a size 13 mm trial poly was then abdulaziz bandar. The knee was held in extension as the cement hardened. Undersurface of the patella was prepared debriding osteophytes using rongeurs as well as osteophytes had been debrided off the proximal tibia with rongeurs and osteotomes to aid with the medial tightness. Cement was placed on the undersurface of the patella after it was cut and a size 32 patella was placed. Once the cement was hardened, the knee was ranged, there was good overall stability both in flexion, extension and as well as stability with varus and valgus stresses. Trial poly was then removed and a size 13 mm CR poly was then placed and locked into position. The knee was then ranged again. There was good overall range of motion both for flexion and extension with good stability. The wound was then irrigated again thoroughly with normal saline using pulse lavage. Tourniquet was let down. Hemostasis was achieved using Bovie electrocautery. Extensor mechanism was then approximated using a #1 Vicryl bothin interrupted and running fashion. The fascia was then approximated using 0 Vicryl. Subcutaneous tissue was approximated with a 2-0 Vicryl. Skin was approximated using yamileth. Sterile dressings were applied. The patient was awakened and transferred back in stable condition. Postoperative Plan: Physical Therapy will be consulted to aid with mobilization Complications: None Implants: Biomet Geraldine Persona 9 CR femur, G tibia w/ stem, 13 CR poly, 32 patella Fluids & blood products: per anesthesia record; 95 mins @ 300 mmHg Transferred to: Recovery Room Condition: Good
[2022-02-01 04:50] LABS: Hematocrit 40.8 % (39.6-49.0)
[2022-02-01] MEDS: CEFAZOLIN 2 GM in NA CHLORIDE 0.9% 100 ML IVPB SCH (05:27)
[2022-02-01] MEDS ORDERED: ENOXAPARIN 30 MG/0.3 ML SQ SCH (06:00)
[2022-02-01] MEDS: HYDROCODONE/APAP 7.5/325 MG TAB PO PRN ×2 (06:16→11:04)
[2022-02-01] MEDS: SERTRALINE HCL 50 MG TAB PO SCH ×2 (09:00→09:57)
[2022-02-01] MEDS: CELECOXIB 100 MG CAPSULE PO SCH ×2 (09:00→09:57)
[2022-02-01] MEDS: CETIRIZINE HCL 5 MG TABLET PO SCH ×2 (09:00→09:56)
[2022-02-01] MEDS: FINASTERIDE 5 MG TAB PO SCH ×2 (09:00→09:56)
[2022-02-01] MEDS: VITAMIN D 5,000 UNIT CAP PO SCH ×2 (09:00→09:57)
--- NOTE | 2022-02-01 12:33 | P.DS ---
Admission Date: 01/31/22 Discharge Date: 02/01/22 Disposition: DC HOME/HOME HEALTH CARE Discharge Condition: GOOD Reason for Admission: L TKA Procedures: L TKA on 01/31/22 Brief History of Present Illness: Nate is a 51-year-old male who underwent left total knee arthroplasty on January 31, 2022 without complication. He was admitted to the floor in stable condition postoperatively. Hospital Course: Nate is a 51-year-old male who underwent left total knee arthroplasty on January 31, 2022 without complication. He was admitted to the floor in stable condition postoperatively. Physical therapy was consulted to aid with mobilization while on the floor. Patient ambulated the day of surgery as well as the morning prior to discharge. He will remained stable and his pain was well controlled. He mobilized safely prior to discharge. He was given Lovenox for DVT prophylaxis while on the floor. He was discharged with Xarelto in stable condition. Vital Signs/Physical Exam: Temp Pulse Resp BP Pulse Ox 99.2 F 84 18 99/61 94 02/01/22 11:39 02/01/22 11:39 02/01/22 11:39 02/01/22 11:39 02/01/22 11:39 Laboratory Data at Discharge: WBC 10.0 K/uL (4.3-10.9) 01/26/22 10:35 Hgb 13.9 g/dL (13.6-17.9) 02/01/22 04:07 Hct 40.8 % (39.6-49.0) 02/01/22 04:07 Plt Count 196 K/uL (152-406) 01/26/22 10:35 PT 11.7 SECONDS (9.5-12.5) 01/26/22 10:35 INR 1.06 01/26/22 10:35 APTT 39.1 SECONDS (24.3-36.9) H 01/26/22 10:35 Sodium 141 mmol/L (136-145) 01/26/22 10:35 Potassium 3.8 mmol/L (3.5-5.1) 01/26/22 10:35 BUN 12 mg/dL (7-18) 01/26/22 10:35 Creatinine 0.86 mg/dL (0.55-1.3) 01/26/22 10:35 Glucose 120 mg/dL (74-106) H 01/26/22 10:35 Home Medications: Cholecalciferol (Vitamin D3) [Vitamin D 5,000 IU Cap*] 5,000 unit PO DAILY 06/10/20 Finasteride 5 mg PO DAILY 06/10/20 Guanfacine HCl 2 mg PO BEDTIME 06/10/20 Multivitamin [Multivitamins] 1 each PO DAILY 06/10/20 Sertraline [Zoloft*] 150 mg PO DAILY 06/10/20 Atorvastatin Calcium [Lipitor*] 10 mg PO BEDTIME 01/26/22 Cetirizine HCl [All Day Allergy Relief] 10 mg PO DAILY 01/26/22 Hydrocodone 7.5/APAP 325 [[place] 7.5/325 mg*] 1 tab PO Q4H PRN tab 02/01/22 Physician Discharge Instructions: Keep dressing clean dry and intact. May be weightbearing as tolerated and work with physical therapy. Begin Xarelto tomorrow February 02, 2022 with breakfast and take once daily. Follow-up with Dr. Walters in 2 weeks for wound check and staple removal. Diet: Regular Activity: Weight bearing as tolerated Followup: Tra Richardson, [Primary Care Provider] - Wayne Walters MD [ACTIVE - CAN ADMIT] - 1-2 Weeks
[2022-02-01 16:28] VITALS: BP 113/74; TEMP 98.4
== END 2022-02-01 16:45 | disposition home health service (06) ==
LOC: OR 05:50 → 2ND 12:23
PROVIDERS: ADMIT Orthopaedic Surgery Sports Medicine; ATTEND Orthopaedic Surgery Sports Medicine
PROC: 0SRD069 Replacement of Left Knee Joint with Oxidized Zirconium on Polyethylene Synthetic Substitute, Cemented, Open Approach (ICD-10-PCS; principal; 2022-01-31 08:00)
DX: M17.12 Unilateral primary osteoarthritis, left knee (principal); I10 Essential (primary) hypertension; E78.5 Hyperlipidemia, unspecified; N40.1 Benign prostatic hyperplasia with lower urinary tract symptoms; N13.8 Other obstructive and reflux uropathy; R73.03 Prediabetes; G47.33 Obstructive sleep apnea (adult) (pediatric); Z99.81 Dependence on supplemental oxygen; M48.061 Spinal stenosis, lumbar region without neurogenic claudication; J30.2 Other seasonal allergic rhinitis; F84.0 Autistic disorder; F41.8 Other specified anxiety disorders; Z72.0 Tobacco use; Z96.651 Presence of right artificial knee joint; Z79.01 Long term (current) use of anticoagulants; Z79.84 Long term (current) use of oral hypoglycemic drugs; Z79.52 Long term (current) use of systemic steroids; Z79.899 Other long term (current) drug therapy; Z82.61 Family history of arthritis; Z82.49 Family history of ischemic heart disease and other diseases of the circulatory system; Z82.3 Family history of stroke; Z83.3 Family history of diabetes mellitus; Z80.9 Family history of malignant neoplasm, unspecified
CPT/HCPCS: 85025; 80048; 36415 ×3; 85610; 88304; 88311; 85730; 85018 ×2; 85014 ×2; 71046; 73560; 97110; 97116 ×3; 97139; 97161; 97530 ×3; 94010; 27447; J2704; J1100 ×2; J1650; J2250; J3010 ×2; J1170 ×3; J0690 ×3; J7120 ×2; G0379; G0378 ×2

== ENCOUNTER 2022-02-13 19:57 | Emergency (ER) | payer OTHER ==
--- OUTSIDE RECORDS SUMMARY | 2022-02-13 20:01 | XMS REPORT | Continuity of Care Document ---
:1970 Author Organization [facility] t Address [address] [place] [address] Care Team Providers Name Role Phone Patrice Richardson Attending Clinician Unavailable Long Attending Clinician Unavailable Problems Condition Condition Condition Status Onset Resolution Last Treating Co mments Source Name Details Category Date Date Treatment Clinician Date Pain, Pain, Problem Active Common joint, joint, Spirit knee, knee, [facility] right right [facility] Pain, Pain, Problem Active Common joint, joint, Spirit knee, left knee, left [facility] Primary Primary Problem Active Common osteoarthr osteoarthr Sp gretel itis of itis of [facility] left knee left knee [facility] Primary Primary Problem Active Common osteoarthr osteoarthr Sp gretel itis of itis of [facility] right knee right knee [facility] Anxiety Anxiety Problem Active Common and and Spirit depression depression [facility] Spinal Spinal Problem Active Common stenosis, stenosis, [...] Com mon allergies allergies Spir it - [facility] Hyperlipid Hyperlipid Problem Active C ommon emia emia [facility] Essential Essential Diagnosis Active C ommon hypertensi hypertensi Sp gretel on on [facility] Elevated Elevated Diagnosis Active Com mon PSA PSA [facility] High-funct High-funct Diagnosis Active Common ioning ioning Spirit autism autism - spectrum spectrum St disorder disorder [facility] Prediabete Prediabete Diagnosis Active Common s s [facility] Allergies, Adverse Reactions, Alerts This patient has no known allergies or adverse reactions. Medications Ordered Filled Start Stop Current Ordering Indication Dosage Frequency Signature Comments Components Source Medication Medication Date Date Medication? Clinician (SIG) Name Name Vitamin D3 Vitamin D3 Yes Tra 1 capsule Common Maximum Maximum 2-21 Richardson [facility] Strength Strength 00:00: - 00 [facility] Vitamin C Vitamin C Yes Tra [address] [facility] Naproxen Naproxen Yes Tra [address] [facility] Multi Multi Yes Tra not Common Vitamin Vitamin Richardson defined Spiri [facility] Cetirizine Cetirizine Yes Tra 1 tablet Common HCl HCl Richardson [facility] Finasteride Finasteride Yes Tra [address] [facility] Sertraline Sertraline Yes Tra TAKE 1 Common HCl HCl Richardson TABLET BY Spirit MOUTH ONCE - CHI A DAY [facility] Guanfacine Guanfacine Yes Tra TAKE 1 Common HCl HCl Richardson TABLET BY Spirit MOUTH AT - CHI BEDTIME [facility] Procedures This patient has no known procedures. Encounters Start End Encounter Admission Attending Care Care Encounter Source Date/Time Date/Time Type Type Clinicians Facility Department ID 2022-02-09 Outpatient Richardson, [facility] [id number] Common 09:39:[address] [facility] 2022-01-11 Outpatient Richardson, [facility] [id number] Common 15:28:[address] [facility] 2022-01-09 Outpatient Richardson, [facility] [id number] Common 09:34:[address] [facility] 2021-11-02 Outpatient Richardson, [facility] [id number] Common 11:10:[address] [facility] 2021-10-20 Outpatient Richardson, [facility] [id number] Common 08:52:[address] [facility] 2021-09-20 Outpatient Richardson, [facility] [id number] Common 13:39:[address] [facility] 2021-09-20 Outpatient Richardson, [facility] [id number] Common 13:39:[address] [facility] 2021-09-20 Outpatient Richardson, [facility] [id number] Common 13:26:[address] [facility] 2021-09-20 Outpatient Richardson, [facility] [id number] Common 12:55:[address] [facility] 2021-09-20 Outpatient Richardson, [facility] [id number] Common 12:47:[address] [facility] 2021-09-20 Outpatient Richardson, [facility] [id number] Common 12:45:[address] [facility] 2021-09-20 Outpatient Richardson, [facility] [id number] Common 12:42:[address] [facility] 2021-09-20 Outpatient Richardson, [facility] [id number] Common 11:52:[address] [facility] 2021-09-20 Outpatient Richardson, [facility] [id number] Common 11:28:[address] [facility] 2021-09-20 Outpatient Richardson, [facility] [id number] Common 11:28:[address] [facility] 2021-09-20 Outpatient Richardson, [facility] [id number] Common 11:21:[address] [facility] 2021-09-20 Outpatient Richardson, [facility] [id number] Common 11:19:[address] [facility] 2021-09-20 Outpatient Richardson, [facility] [id number] Common 11:15:[address] [facility] 2021-09-20 Outpatient Richardson, [facility] [id number] Common 11:15:[address] [facility] 2021-09-20 Outpatient SARIAH Richardson [facility] [id number] Common 11:10:[address] [facility] 2021-09-20 Outpatient Rachael Frye [facility] [id number] Common 11:09:[id number] [facility] 2021-09-20 Outpatient Rachael Frye [facility] [id number] Common 10:58:[address] [facility] 2019-10-20 2019-10-20 Out[id number] Common 13:30:00 13:30:00 t [employer] Spir it [place] [employer] [facility] 2019-10-02 2019-10-02 Out[facility] [id number] Common 09:20:00 09:20:00 t [facility] Bone [facility] Sp[facility] t and Joint [facility] - [facility] 2019-08-13 2019-08-13 Outpatient [facility] [id number] Common 10:00:00 10:00:00 t [facility] - [facility] 2019-07-30 2019-07-30 Outpatient [facility] [id number] Common 14:00:00 14:00:00 t [place] Sp[place] [facility] [place] [facility] 2019-06-16 2019-06-16 Outpatient [facility] [id number] Common 09:00:00 09:00:00 t [facility] Sp[facility] t [facility] Joint [facility] - [facility] Results This patient has no known results.
--- NOTE | 2022-02-13 21:29 | EDPHYS ---
Physician Documentation [facility] Name: Nate Boogie Age: 51 yrs Sex: Male : 1970 Arrival Date: 02/13/2022 Time: 19:59 Bed 12 Private MD: ED Physician Ryder Lester Historical: - Home Meds: 02/13 20:28 atorvastatin 10 mg oral tab [Active]; sertraline 100 mg oral tab [Active]; finasteride as6 5 mg oral tab [Active]; guanfacine 2 mg Oral tab [Active]; - PSHx: 20:28 knee replacement; as6 - Immunization history:: Client reports receiving the 2nd dose of the Covid vaccine, moderna . - Social history:: Smoking status: Patient/guardian denies using tobacco, but has a distant history of tobacco abuse. Vital Signs: 20:24 BP 120 / 86; Pulse 92; Resp 20 S; Temp 98.2(TE); Pulse Ox 98% on R/A; Weight 110.68 kg as6 (R); Height 5 ft. 8 in. (172.72 cm) (R); Pain 1/10; 20:24 Body Mass Index 37.10 (110.68 kg, 172.72 cm) as6 MDM: 21:28 Patient medically screened. kdr Administered Medications: No medications were administered Disposition Summary: 02/13/22 21:28 Discharge Ordered Location: Home kdr Problem: new kdr Symptoms: are unchanged kdr Condition: Stable kdr Diagnosis - Atopic dermatitis, unspecified kdr - Dermatitis, unspecified kdr Followup: kdr - With: Private Physician - When: 2 - 3 days - Reason: If symptoms return, Further diagnostic work-up, Recheck today's complaints, Continuance of care, Re-evaluation by your physician Discharge Instructions: - Discharge Summary Sheet kdr - Rash, Adult, [id number] kdr - Atopic Dermatitis kdr Forms: - Medication Reconciliation Form kdr - Thank You Letter kdr - Antibiotic Education kdr Prescriptions: - Benadryl 25 mg Oral Capsule - take 1 capsule by ORAL route every 6 hours As needed; 30 tablet; Refills: 0, kdr Product Selection Permitted - Cephalexin 500 mg Oral Capsule - take 1 capsule by ORAL route every 8 hours for 10 days; 30 capsule; Refills: 0, kdr Product Selection Permitted - Medrol ([place]) 4 mg Oral Tablets, Dose Pack - take 1 tablet by ORAL route as directed - follow package instructions; 1 kdr packet; Refills: 0, Product Selection Permitted - Pepcid 20 mg Oral Tablet - take 1 tablet by ORAL route once daily for 10 days; 10 tablet; Refills: 0, kdr Product Selection Permitted Signatures: Ryder Lester MD MD kdr Slawson, Ashby, RN RN as6
--- NOTE | 2022-02-13 21:29 | ER ---
Nurse's Notes [facility] Name: Nate Boogie Age: 51 yrs Sex: Male : 1970 Arrival Date: 02/13/2022 Time: 19:59 Bed 12 Private MD: Diagnosis: Atopic dermatitis, unspecified;Dermatitis, unspecified Presentation: 02/13 20:24 Chief complaint: Patient states: rash to face, pt reports itching, pt and are as6 worried due to pt having a recent knee replacement sx. Coronavirus screen: At this time, the client does not indicate any symptoms associated with coronavirus-19. Ebola Screen: No symptoms or risks identified at this time. Initial Sepsis Screen: Does the patient meet any 2 criteria? No. Patient's initial sepsis screen is negative. Does the patient have a suspected source of infection? No. Patient's initial sepsis screen is negative. Risk Assessment: Do you want to hurt yourself or someone else? Patient reports no desire to harm self or others. Onset of symptoms was January 31, 2022. 20:24 Method Of Arrival: Ambulatory as6 20:24 Acuity: LAINE 4 as6 Historical: - Home Meds: 20:28 atorvastatin 10 mg oral tab [Active]; sertraline 100 mg oral tab [Active]; finasteride as6 5 mg oral tab [Active]; guanfacine 2 mg Oral tab [Active]; - PSHx: 20:28 knee replacement; as6 - Immunization history:: Client reports receiving the 2nd dose of the Covid vaccine, moderna . - Social history:: Smoking status: Patient/guardian denies using tobacco, but has a distant history of tobacco abuse. Screenin:42 Abuse screen: Denies threats or abuse. Nutritional screening: No deficits noted. bb Tuberculosis screening: No symptoms or risk factors identified. Fall Risk None identified. Assessment: 20:30 General: Appears in no apparent distress. Behavior is calm, cooperative. Pain: Denies as6 pain. Neuro: Level of Consciousness is awake, alert, obeys commands, Oriented to person, place, time, situation. Respiratory: Respiratory effort is even, unlabored. Derm: Rash noted that is itchy, red, on face. 21:42 General: Appears in no apparent distress. Behavior is calm, cooperative. Pain: Denies bb pain. Neuro: Level of Consciousness is awake, alert, obeys commands, Oriented to person, place, time, situation. Cardiovascular: No deficits noted. Respiratory: Respiratory effort is even, unlabored. GI: No signs and/or symptoms were reported involving the gastrointestinal system. :. Derm: Rash noted that is red, on face. Musculoskeletal: Circulation, motion, and sensation intact. 21:43 Reassessment: pt verbalized understanding of and agrees to plan of care discharge bb instructions given pt ambulated to exit with cane accompanied by family. Vital Signs: 20:24 BP 120 / 86; Pulse 92; Resp 20 S; Temp 98.2(TE); Pulse Ox 98% on R/A; Weight 110.68 kg as6 (R); Height 5 ft. 8 in. (172.72 cm) (R); Pain 1/10; 20:24 Body Mass Index 37.10 (110.68 kg, 172.72 cm) as6 ED Course: 19:59 Patient arrived in ED. rg4 20:28 Triage completed. as6 20:31 Arm band placed on. as6 20:32 Giovani Martin, PAULETTE is Primary Nurse. as6 20:43 Ryder Lester MD is Attending Physician. kdr 21:42 Patient has correct armband on for positive identification. bb 21:42 No provider procedures requiring assistance completed. Patient did not have IV access bb during this emergency room visit. Administered Medications: No medications were administered Medication: 21:43 VIS not applicable for this client. as6 Outcome: 21:28 Discharge ordered by . kdr 21:44 Discharged to home ambulatory, with family. bb 21:44 Condition: stable 21:44 Discharge instructions given to patient, Instructed on discharge instructions, follow up and referral plans. medication usage, Demonstrated understanding of instructions, follow-up care, medications, Prescriptions given X 4. 21:44 Patient left the ED. bb Signatures: Ryder Lester MD MD kdr Ballard, Brenda, RN RN bb Garcia, Rubi rg4 Giovani Martin, PAULETTE RN as6
[2022-02-13 21:51] VITALS: BP 120/86; TEMP 98.2; O2SAT 98
== END 2022-02-13 21:44 | disposition home or self-care (01) ==
LOC: ER 19:57
DX: L20.9 Atopic dermatitis, unspecified (principal)